=== PATIENT | female | born 1990 | race Caucasian/White ===

== ENCOUNTER → 2021-10-06 12:11 | Outpatient (CLI) | payer OTHER, SELFPAY ==
--- NOTE | 2021-10-06 12:14 | US_ITS ---
FINAL REPORT CLINICAL HISTORY: Check Placement of IUD and Strings FINDINGS: Transvaginal sonographic images of the pelvis were obtained. The uterus measures 7.5 x 5.2 x 3.6 cm. The endometrium measures 4 mm, which is within normal limits. An IUD is present within the endometrial cavity. The right ovary measures 3.0 cm in length and left ovary measures 4.4 cm in length. Normal blood flow seen to the ovaries. Multiple small follicles are seen in the periphery of both ovaries with an appearance worrisome for PCOS. In addition, there is a 2.1 cm left ovarian cyst. There is no evidence of free fluid. IMPRESSION: IUD is present within the endometrial cavity. Multiple small follicles in the periphery of both ovaries with an appearance worrisome for PCOS. Reviewed, Interpreted and Dictated by Haris Banks III, MD Transcribed by Radha Mccarthy Authenticated and [facility]
== END ==
PROVIDERS: Visit Provider Obstetrics & Gynecology
DX: Z01.818 Encounter for other preprocedural examination (principal); Z20.822 Contact with and (suspected) exposure to COVID-19; Z30.430 Encounter for insertion of intrauterine contraceptive device
CPT/HCPCS: 76830; C9803; U0003; U0005

== ENCOUNTER 2021-10-07 06:07 | Day surgery (SDC) | payer OTHER, SELFPAY ==
[2021-10-07 06:14] VITALS: BMI 24.4
[2021-10-07 06:32] VITALS: BP 104/57; PULSE 65; RESP 18; TEMP 36.4; O2SAT 97
[2021-10-07 06:37] LABS: Urine Pregnancy, HCG Qual. Negative (Negative)
[2021-10-07 07:53] VITALS: BP 100/53; PULSE 81; RESP 18; TEMP 36.5; O2SAT 97
--- NOTE | 2021-10-07 08:07 | EXP.OP.NOTE ---
Date of procedure: 10/07/21 Pre-op Diagnosis:: 1. Encounter for IUD removal. IUD strings not identified on exam Post-op Diagnosis:: 1. Encounter for IUD removal. IUD strings not idenitifed on exam Procedure performed:: Dilation, hysteroscopy, removal of IUD Surgeon:: Yanely Alfaro DO Flight Operations Dispatch Clerk(s):: n/a [employer]ATHER [employer] SALES REPRESENTATIVE:: Other (Terry Aguilar [employer]ATHER [employer] SALES REPRESENTATIVE) Anesthesia: MAC Estimated blood loss (mL): 0 Clinical Note:: Mrs Gifty Harvey is a very pleasant 31 yo, P2002, who present to the office on 10/06/21 for IUD removal. She would like to conceive. Attempted IUD removal without success. IUD strings not visualized during exam. Cervix was cleansed with Betadine. Attempted to grasp the strings in the cervical canal with Cytobrush and Alligator forceps. Attempt was unsuccessful. Patient tolerated attempt well. Pelvic ultrasound demonstrated IUD within the uterine cavity. Prophylactic Doxycycline was prescribed to prevent endometritis. Decision was made to proceed to OR for hysteroscopy and removal of IUD. Operative findings:: On bimanual exam, uterus was anteverted and of normal size and shape. No adnexal masses palpated. Cervix appeared grossly normal. On hysteroscopic exam, IUD was properly seated in the uterine cavity with the IUD strings wrapped around the stalk of the IUD. After IUD removed endometrial cavity was viewed. Tubal ostia easily visualized. Grossly normal appearing endometrial tissue. No masses or polyps. Operative note:: Risks, benefits and alternatives were discussed with the patient. Patient voiced understanding and agreed to proceed. She was wheeled back to the operating room and placed under MAC without difficulty. She was placed in dorsal lithotomy position and prepped and draped in the normal sterile fashion. A bimanual exam was performed. A weighted Auvard was placed in the vaginal vault. Single tooth tenaculum was placed on anterior lip of the cervix. Uterus sounded to 8. Sequential Martin dilators were used to dilate the cervical os. Hysteroscope was tested inserted through the cervix without difficulty. Endometrial cavity was evaluated. See findings above. Pictures were taken. Hysteroscopic graspers were inserted through the hysteroscope. IUD was grasped and removed without difficulty with removal of hysteroscope. IUD was intact. Hysteroscope was inserted and endometrial cavity was evaluated. See findings above. Hysteroscope was removed. Instruments were removed from the vagina. Small amount of oozing at left tenaculum site. Silver nitrate stick applied to tenaculum site. Tenaculum site was noted to be hemostatic. Patient was awaken from anesthesia without difficulty. She was transported to recovery room in stable condition. Patient will be discharged home when awake and ambulating. She was given postop instructions. Continue Doxycycline 100 mg BID that was prescribed on 10/06/21. Condition: stable Disposition: same day Specimens:: None Complications:: None
[2021-10-07 08:08] VITALS: BP 103/77; PULSE 75; RESP 18; TEMP 36.5; O2SAT 100
[2021-10-07 08:26] VITALS: BP 100/63; PULSE 60; RESP 18; TEMP 36.5; O2SAT 100
--- NOTE | 2021-10-07 09:19 | PC.NURSE ---
0755- TSever RELIABILITY TECHNOLOGIST administered 30 Tordal IV for the abd cramping
== END 2021-10-07 08:26 | disposition home or self-care (01) ==
PROVIDERS: PCP Obstetrics & Gynecology; Visit Provider Obstetrics & Gynecology
PROC: (CPT 58562; principal; 2021-10-07 07:30)
DX: Z30.432 Encounter for removal of intrauterine contraceptive device (principal); T83.32XA Displacement of intrauterine contraceptive device, initial encounter; Z79.899 Other long term (current) drug therapy
CPT/HCPCS: 58562; 81025

== ENCOUNTER → 2021-12-27 09:19 | Outpatient (CLI) | payer OTHER, SELFPAY ==
[2021-12-27 10:58] LABS: HCG,Quantitative 749 mIU/ml (0-5.42)
[2021-12-28 08:15] LABS: Progesterone 27.8 ng/mL (.)
== END ==
PROVIDERS: PCP Internal Medicine Adolescent Medicine; Visit Provider Obstetrics & Gynecology
DX: Z34.90 Encounter for supervision of normal pregnancy, unspecified, unspecified trimester (principal)
CPT/HCPCS: 36415; 84144; 84702

== ENCOUNTER → 2022-01-25 17:02 | Outpatient (CLI) | payer OTHER, SELFPAY ==
[2022-01-25 19:12] LABS: Amphetamine/Metha Screen,Urine Negative ng/ml (<1000)
[2022-01-25 19:13] LABS: Barbiturates Screen,Urine Negative ng/ml (<200); Benzodiazepines Screen,Urine Negative ng/ml (<200)
[2022-01-25 19:14] LABS: Cannabinoid Screen,Urine Negative ng/ml (<50)
[2022-01-25 19:15] LABS: Cocaine Screen,Urine Negative ng/ml (<300); Methadone Screen,Urine Negative ng/ml (<300)
[2022-01-25 19:16] LABS: Opiate Screen,Urine Negative ng/ml (<300); Phencyclidine Screen,Urine Negative ng/ml (<25)
[2022-01-31 23:37] LABS: Neisseria gonorrhoeae, NAA Negative (Negative)
== END ==
PROVIDERS: Visit Provider Obstetrics & Gynecology
DX: Z34.90 Encounter for supervision of normal pregnancy, unspecified, unspecified trimester (principal)
CPT/HCPCS: 80305; 87086; 87491; 87591

== ENCOUNTER → 2022-02-07 07:19 | Outpatient (CLI) | payer OTHER, SELFPAY ==
[2022-02-07 07:43] LABS: Basophils # 0.1 K/mm3 (0-0.2); Basophils % 0.8 % (0.1-2.0); Eosinophils # 0.2 K/mm3 (0.0-0.4); Eosinophils % 2.1 % (0.1-12.0); Hemoglobin 12.5 g/dL (12.2-16.2); Lymphocytes # 1.9 K/mm3 (0.7-4.5); Lymphocytes % 24.8 % (10-50); Mean Corpuscular HGB Conc 33.9 g/dL (31.8-35.4); Mean Corpuscular Hemoglobin 32.5 pg (27.0-31.2); Monocytes # 0.3 K/mm3 (0.1-1.0); Monocytes % 4.5 % (1.7-9.3); Neutrophils # 5.1 K/mm3 (1.8-7.8); Neutrophils % 67.8 % (37.0-80.0); Platelet Count 228 K/mm3 (142-424); Red Blood Count 3.85 M/mm3 (4.20-5.40); White Blood Count 7.5 K/mm3 (4.8-10.8)
[2022-02-08 09:13] LABS: HIV Screen 4th Generation wRfx Non Reactive (Non Reactive)
[2022-02-08 13:33] LABS: Rapid Plasma Reagin Ab Titer Non Reactive (NonRea<1:1)
[2022-02-15 23:00] LABS: Hepatitis B Surface Antigen NEGATIVE; Hepatitis C Antibody <0.1
== END ==
PROVIDERS: PCP Internal Medicine Adolescent Medicine; Visit Provider Obstetrics & Gynecology
DX: Z34.90 Encounter for supervision of normal pregnancy, unspecified, unspecified trimester (principal)
CPT/HCPCS: 36415; 85025; 86593; 86703; 86762; 86850; 87340; 87380; G0432

== ENCOUNTER → 2022-04-26 13:54 | Outpatient (CLI) | payer OTHER, SELFPAY ==
--- NOTE | 2022-04-26 13:54 | US_ITS ---
FINAL REPORT CLINICAL HISTORY: 20 week anatomy scan FINDINGS: There is a single live intrauterine gestation. Presentation is breech. The cervix is closed and measures 3.3 cm. Placenta is anterior, fundal and posterior. Cardiac activity is confirmed at 139 bpm. No gross anomalies identified. MEASUREMENTS: ULTRASOUND AGE: 21 weeks 3 days. GESTATION AGE: 21 weeks 0 days. ESTIMATED WEIGHT: 434 g GROWTH PERCENTILE: 75% BPD: 5.13 cm corresponding to 21 weeks 4 days. OFD: 6.54 cm corresponding to 21 weeks 5 days. HC: 18.46 cm corresponding to 20 weeks 6 days. AC: 16.85 cm corresponding to 21 weeks 6 days. FL: 3.60 cm corresponding to 21 weeks 3 days. CEREBELLUM: 2.10 cm corresponding to 21 weeks 2 days. HUMERUS: 3.48 cm corresponding to 22 weeks 0 days. HC/AC: 1.10 CI: 78% FL/BPD: 70% FL/AC: 21% IMPRESSION: Single living IUP with an ultrasound age of 21 weeks 3 days. Reviewed, Interpreted and Dictated by Carlos Oconnell MD Transcribed by Cindy Armendariz Authenticated and [facility]
== END ==
PROVIDERS: PCP Internal Medicine Adolescent Medicine; Visit Provider Obstetrics & Gynecology
DX: Z34.90 Encounter for supervision of normal pregnancy, unspecified, unspecified trimester (principal); Z3A.20 20 weeks gestation of pregnancy
CPT/HCPCS: 76811

== ENCOUNTER → 2022-05-25 07:23 | Outpatient (CLI) | payer OTHER, SELFPAY ==
[2022-05-25 07:40] LABS: Basophils # 0.1 K/mm3 (0-0.2); Basophils % 0.6 % (0.1-2.0); Eosinophils # 0.2 K/mm3 (0.0-0.4); Hematocrit 33.5 % (37.0-47.0); Hemoglobin 11.4 g/dL (12.2-16.2); Lymphocytes # 1.9 K/mm3 (0.7-4.5); Lymphocytes % 22.5 % (10-50); Mean Corpuscular HGB Conc 33.9 g/dL (31.8-35.4); Mean Corpuscular Hemoglobin 31.9 pg (27.0-31.2); Mean Corpuscular Volume 94.1 fl (81-99); Monocytes # 0.5 K/mm3 (0.1-1.0); Monocytes % 5.8 % (1.7-9.3); Neutrophils # 5.9 K/mm3 (1.8-7.8); Neutrophils % 69.1 % (37.0-80.0); Platelet Count 223 K/mm3 (142-424); Red Blood Count 3.56 M/mm3 (4.20-5.40); White Blood Count 8.6 K/mm3 (4.8-10.8)
[2022-05-25 07:54] LABS: Glucose,Fasting 85 mg/dl (74-100)
[2022-05-25 09:27] LABS: Glucose 1 Hour 89 mg/dL (74-100)
== END ==
PROVIDERS: PCP Internal Medicine Adolescent Medicine; Visit Provider Obstetrics & Gynecology
DX: Z34.90 Encounter for supervision of normal pregnancy, unspecified, unspecified trimester (principal); Z3A.20 20 weeks gestation of pregnancy
CPT/HCPCS: 36415; 82951; 85025

== ENCOUNTER 2022-08-30 05:34 | Inpatient (IN) | payer OTHER, SELFPAY ==
[2022-08-30] VITALS (8 sets, daily range): BP systolic 101–127; BP diastolic 47–74; PULSE 78–91; RESP 15–20; TEMP 36.6–37.1; O2SAT 97–100; BMI 29.4
[2022-08-30 06:10] LABS: Microscopic, Urine URINE MICROSCOPIC (MICROSCOPIC)
[2022-08-30 06:16] LABS: Basophils % 0.5 % (0.1-2.0); Eosinophils # 0.1 K/mm3 (0.0-0.4); Eosinophils % 0.9 % (0.1-12.0); Hematocrit 31.6 % (37.0-47.0); Hemoglobin 10.2 g/dL (12.2-16.2); Lymphocytes # 1.7 K/mm3 (0.7-4.5); Lymphocytes % 28.3 % (10-50); Mean Corpuscular HGB Conc 32.3 g/dL (31.8-35.4); Mean Corpuscular Hemoglobin 26.5 pg (27.0-31.2); Mean Platelet Volume 10.1 fl (7.4-10.4); Monocytes # 0.4 K/mm3 (0.1-1.0); Monocytes % 6.5 % (1.7-9.3); Neutrophils # 3.9 K/mm3 (1.8-7.8); Neutrophils % 63.9 % (37.0-80.0); Platelet Count 171 K/mm3 (142-424); Red Blood Count 3.86 M/mm3 (4.20-5.40); White Blood Count 6.1 K/mm3 (4.8-10.8)
[2022-08-30 06:26] LABS: Appearance,Urine CLEAR (Clear); Bilirubin,Urine Negative (Negative); Blood, Urine TRACE-I (Negative); Color,Urine YELLOW (Yellow); Glucose,Urine (UA) Negative (Negative); Ketones,Urine Negative (Negative); Leukocyte Esterase,Urine Negative (Negative); Nitrate,Urine Negative (Negative); PH,Urine 6.5 (5.0-8.5); Protein,Urine Negative (Negative); Specific Gravity, Urine 1.015 (1.005-1.030); Urobilinogen,Urine 0.2 EU/dl (0.2)
[2022-08-30 06:31] LABS: Alanine Aminotransferase 19 U/L (12-78); Albumin Level 3.4 g/dl (3.5-5.0); Albumin/Globulin Ratio 1.4 (1.1-1.8); Alkaline Phosphatase 248 U/L (38-126); Anion Gap 6.5 mEq/L (5-15); Aspartate Amino Transferase 28 U/L (14-36); Bilirubin,Total 0.3 mg/dl (0.2-1.3); Blood Urea Nitrogen 4 mg/dl (7-17); Calcium 8.3 mg/dl (8.4-10.2); Carbon Dioxide 22 mmol/L (22.0-30.0); Chloride 110 mmol/L (98-107); Creatinine Clearance Estimated 240 mL/min (50-200); Estimated Glomerular Filt Rate 185 ml/min (>60); GFR (African American) 224 ML/MIN (>60); Globulin 2.5 g/dL (1.3-3.2); Glucose 84 mg/dl (74-100); Potassium 3.5 mmoL/L (3.5-5.1); Sodium 135 mmol/L (136-145); Total Protein,Serum 5.9 g/dl (6.3-8.2)
[2022-08-30 06:37] LABS: Bacteria,Urine Trace /lpf; Squamous Epithelial Cell,Urine Occasional #/hpf (0-5); WBC,Urine Occasional #/hpf (0-3)
--- NOTE | 2022-08-30 07:17 | EXP.OB.APHP ---
OB - H&P: HPI Antepartum History of Present Illness Chief complaint: Scheduled repeat History of present illness: Mrs Gifty Harvey is a 32 yo at 39w0d who presents for scheduled repeat . History of x 2. She has had good care. She is complete with child bearing and desires permanent sterilization. History of Present Criteria for establishing EDC:: LMP confirmed by 1st trimester US care: good care Ultrasounds: normal 1st trimester US and normal mid trimester US Obstetrical complications: none Medical complications: none Labs Blood type: O (+) positive Rubella: immune RPR/VDRL: nonreactive HBsAG: negative PFSH PFSH Disclaimer: The information contained in this section may have been updated after the patient was seen, as this information can be updated by other users. Medical History (Updated 08/30/22 @ 07:22 by Yanely Alfaro DO) Headache in Heartburn during in third trimester Nausea and vomiting in with 39 completed weeks gestation Surgical History History of History of hysteroscopy Family History Other Diabetes Hypertension Social History Smoking Status: Never smoker alcohol intake: never substance use type: denies use current occupational status: employed Travel in the last 8 weeks: None Review of Systems Review of Systems Review of systems:: pertinent systems reviewed and negative unless documented below Meds Home Medications and Allergies Home Medications Medication Instructions Recorded Confirmed Type docosahexaenoic acid 200 mg 200 mg PO DAILY Supplement 01/25/22 08/30/22 History capsule ( DHA) pantoprazole 20 mg tablet,delayed 20 mg PO DAILY Heartburn 08/30/22 08/30/22 History release New Prescriptions to Start Prescriptions: Allergies Allergy/AdvReac Type Severity Reaction Status Date / Time No Known Drug Allergies Allergy Unknown NA Verified 08/28/22 09:18 [NKDA] OB - H&P: Exam Physical Exam Vital signs: Temp Pulse Resp BP Pulse Ox O2 Del Method 98.8 F 91 H 16 127/61 98 Room Air 08/30/22 06:22 08/30/22 06:22 08/30/22 06:22 08/30/22 06:22 08/30/22 06:22 08/30/22 06:22 Constitutional no acute distress Routine HEENT Exam Head: Present normocephalic and atraumatic Eye: Absent conjunctivae pink ENT: Present mucous membranes moist and dentition normal Routine Neck Exam Present full ROM Routine Respiratory Exam Present CTA bilaterally and normal respiratory effort Routine Cardiovascular Exam Present RRR Routine Abdominal Exam Present soft (Gravid); Absent tenderness Routine Rectal Exam Patient deferred: visual exam Routine Exam External: Present normal urethra appearance; Absent erythema, tenderness or lesions Routine Extremities Exam Present edema (+1 bilateral lower extremity edema) and full ROM; Absent calf tenderness Routine Neurological Exam Present alert, oriented X3 and moving all extremities Routine Psychiatric Exam Present normal affect and cooperative Detailed Labor and Delivery Exam Membranes: intact Baseline heart rate: 150 monitor accelerations: Present monitor decelerations: Variable USP variability: Moderate (11-25) OB - Results Labs Labs: Short CBC 08/30/22 Range/Units 06:03 WBC 6.1 (4.8-10.8) K/mm3 Hgb 10.2 L (12.2-16.2) g/dL Hct 31.6 L (37.0-47.0) % Plt Count 171 (142-424) K/mm3 BMP 08/30/22 06:03 Sodium 135 L Potassium 3.5 Chloride 110 H Carbon Dioxide 22 BUN 4 L Creatinine 0.40 L Glucose 84 Calcium 8.3 L Liver Function 08/30/22 Range/Units 06:03 Total Bilirubin 0.3 (0.2-1.3) mg/dl AST 28 (14-36) U/L ALT 19 (12-78)
[2022-08-30 07:52] LABS: Cord Blood PH 7.43 (7.35-7.45)
[2022-08-30 08:07] LABS: Amphetamine/Metha Screen,Urine Negative ng/ml (<1000); Barbiturates Screen,Urine Negative ng/ml (<200)
[2022-08-30 08:08] LABS: Benzodiazepines Screen,Urine Negative ng/ml (<200)
[2022-08-30 08:09] LABS: Cannabinoid Screen,Urine Negative ng/ml (<50)
[2022-08-30 08:10] LABS: Cocaine Screen,Urine Negative ng/ml (<300); Methadone Screen,Urine Negative ng/ml (<300)
[2022-08-30 08:14] LABS: Opiate Screen,Urine Negative ng/ml (<300)
[2022-08-30 08:15] LABS: Phencyclidine Screen,Urine Negative ng/ml (<25)
--- NOTE | 2022-08-30 08:34 | EXP.OP.NOTE ---
Date of procedure: 08/30/22 Pre-op Diagnosis:: 1. IUP at 39w0d 2. History of x 2 3. Complete with childbearing, desires permanent sterilization Post-op Diagnosis:: 1. IUP at 39w0d 2. History of x 2 3. Complete with childbearing, desires permanent sterilization Procedure performed:: 1. Repeat Low Transverse Section 2. Bilateral partial salpingectomy Surgeon:: Yanely Alfaro DO Field Education Coordinator(s):: iMn Cash MD MATHEMATICS TEACHER:: Ronny Oconnell Anesthesia: spinal Estimated blood loss (mL): 300 Clinical Note:: Mrs Gifty Harvey is a 32 yo at 39w0d who presents for scheduled repeat . History of x 2. She has had good care. She is complete with child bearing and desires permanent sterilization. Operative findings:: 1. Live male baby (baby's name is Senthil) weighing 7 lb 14 oz, APGARs 8, 9 2. Nuchal cord x 2, easily reduced 2. Grossly normal appearing uterus, bilateral fallopian tubes and ovaries Operative note:: The risks, benefits and alternatives of the procedure were reviewed with the patient. Informed consent was obtained. Patient was taken to the operating room where spinal anesthesia was placed. The patient received 2 grams of Ancef preoperatively. Patient was placed in dorsal supine position with a leftward tilt. SCDs in place. Shaw catheter had been placed and was draining clear urine prior to the start of the procedure. Patient was then prepped and draped in normal sterile fashion. Allis clamp test was performed to ensure adequate anesthesia. A skin incision was made 2 cm above pubic symphysis at prior Pfannenstiel scar. This was carried through to underlying layer of fascia. Fascia was incised in midline, extended laterally with Aguilera scissors. Superior aspect of fascial incision was grasped with two Eladia clamps, elevated up, and rectus muscle dissected off bluntly and sharply with Aguilera scissors. Inferior aspect of fascial incision was grasped with two Eladia clamps, elevated up, and rectus muscle dissected off bluntly and sharply with Aguilera scissors.The retcus muscle was then in the midline and the peritoneum was entered bluntly with a digit. Peritoneal incision was then extended superiorly and inferiorly with good visualization of the bladder. Jose Antonio retractor was inserted. Bladder flap was made with Metzenbaum scissors. The lower uterine segment was incised in a transverse fashion. Clear amniotic fluid was noted. Head was delivered without difficulty. Nuchal x 2 was easily reduced. Remainder of body was delivered without difficulty. Mouth and nares were bulb suctioned. Spontaneous cry was noted. Delayed cord clamping was performed for 60 seconds. The umbilical cord was clamped and cut. The infant was handed to awaiting pediatric staff in stable condition. Dr. Naik was present. Apgars were 8(1 min), 9(5 min). Cord blood was obtained. Gentle traction on the umbilical cord and uterine fundal massage delivered the placenta. Placenta was intact. Placenta will be sent to pathology for review. Uterus was cleared of all clots and debris with a moist laparotomy sponge. Corners of the uterine incision were grasped with Allis clamps. The uterine incision was reapproximated with # 1 Vicryl suture in a running, locked stitch. Second layer of the same stitch was used to imbricate the incision. Hemostasis was noted. Vesicouterine peritoneum was reapproximated with 0 Chromic suture in a running stitch. Hemostasis was noted. Posterior cul-de-sac was cleaned with moist laparotomy sponge.Gutters cleared of all clots and debris with a moist laparotomy sponge. Attention was then turned to the left fallopian tube, which was grasped with a Laurier clamp and avascular space below the tub was entered using a hemostat. The tube was doubly clamped using hemostat and the portion between the clamps was removed using Metzenbaum scissors. The proximal and distal ends of the tube were doubly suture ligated with 0 Chr
--- NOTE | 2022-08-30 08:43 | EXP.ANES.CKL ---
[facility] Disclaimer: The information contained in this section may have been updated after the patient was seen, as this information can be updated by other users. Medical History (Updated 08/30/22 @ 07:22 by Yanely Alfaro DO) Headache in Heartburn during in third trimester Nausea and vomiting in with 39 completed weeks gestation Surgical History History of History of hysteroscopy Family History Other Diabetes Hypertension Social History Smoking Status: Never smoker alcohol intake: never substance use type: denies use current occupational status: employed Travel in the last 8 weeks: None [facility] Anesthesia Checklist Patient Identification Patient Identification: Arm Band Structural Data Admitted From: Inpatient Planned Operative Procedure/s: Repeat C/S, BTL Consent for Planned Operative Procedure(s) Verified: Yes Verified Documents: Surgical Consent and History and Physical NPO Status Verified Time NPO: 00:00 Additional verifications Anesthesia Reactions: No Hx Blood Transfusions: No Blood Transfusion Reaction: No Airway Assessment C-Spine Mobility Assessed: Yes TMJ Mobility Assessed: Yes Dentition: Good Dentition Neurological Assessment Level of Consciousness: Awake and Alert Anesthesia Plan Anesthesia Risk discussed: Yes Anesthesia Plan: Verified ASA Class: II Anesthesia Type: Spinal (with Bilateral TAP Block)
--- NOTE | 2022-08-30 08:45 | EXP.ANES.I ---
[facility] Anesthesia Record Part I Anesthesia Record I Intake, IV Amount: 2,000 Estimated blood loss (mL): 300 Urine output (mL): 600 Blood Products used (#): none Blood Pressure: 101/47 SaO2: 100 Pulse Rate: 80 Respiratory Rate: 16 Temperature: 97.9 F Patient is:: Awake and Stable Stable to PACU at:: 08:40
--- NOTE | 2022-08-30 12:53 | EXP.ANES.II ---
[facility] Anesthesia Record Part II Anesthesia Record Part II Discharge Time: 09:10 Destination: Obstetric PACU nurse assessment reviewed?: Yes Patient Condition:: Good Anesthesia Complications:: None Swallowing reflex intact?: Yes Cyanosis?: No Blood Pressure: 124/74 Pulse Rate: 85 Temperature: 97.9 F Mental Status: Alert & Oriented Pain level:: 0 Nausea and/or vomitting:: None Intake, IV Amount: 0
[2022-08-30 14:09] LABS: Microscopic,Cath URINE MICROSCOPIC (MICROSCOPIC)
--- NOTE | 2022-08-30 14:18 | SUR.OPER ---
Time of 0746, viable male . ph 7.42.
[2022-08-30 14:56] LABS: Appearance,Urine/Cath CLEAR (Clear); Bilirubin,Cath Negative (Negative); Blood, Urine/Cath Negative (Negative); Color,Urine/Cath STRAW (Yellow); Glucose,Urine/Cath (UA) Negative (Negative); Ketones,Urine/Cath Negative (Negative); Leukocyte Esterase,Cath Negative (Negative); Nitrate,Cath Negative (Negative); Protein,Urine/Cath Negative (Negative); Specific Gravity, Urine/Cath <= 1.005 (1.005-1.030); Urobilinogen,Cath 0.2 EU/dl (0.2)
[2022-08-30 15:11] LABS: Squamous Epithelial Ur./Cath Occasional #/hpf (0-5)
[2022-08-31 06:54] LABS: Basophils % 0.4 % (0.1-2.0); Eosinophils # 0.1 K/mm3 (0.0-0.4); Eosinophils % 1.3 % (0.1-12.0); Hematocrit 30.5 % (37.0-47.0); Hemoglobin 9.5 g/dL (12.2-16.2); Lymphocytes # 1.4 K/mm3 (0.7-4.5); Lymphocytes % 15.3 % (10-50); Mean Corpuscular HGB Conc 31.1 g/dL (31.8-35.4); Mean Corpuscular Volume 83.8 fl (81-99); Mean Platelet Volume 9.8 fl (7.4-10.4); Monocytes # 0.5 K/mm3 (0.1-1.0); Monocytes % 5.3 % (1.7-9.3); Neutrophils # 7.3 K/mm3 (1.8-7.8); Neutrophils % 77.7 % (37.0-80.0); Platelet Count 203 K/mm3 (142-424); Red Blood Count 3.63 M/mm3 (4.20-5.40); Red Cell Distribution Width 15.3 % (11.5-17.5); White Blood Count 9.4 K/mm3 (4.8-10.8)
--- NOTE | 2022-08-31 12:41 | EXP.DC.SUM ---
General Admission date:: 08/30/22 Discharge date: 08/31/22 HPI HPI HPI: POD # 1 s/p RLTCS with BPS Resting comfortably sitting in bed. Pain controlled. Lochia is appropriate. Breast feeding. Voiding without difficulty and passing flatus. Tolerating regular diet. Denies fever/chills, chest pain and shortness of breath. No headache or vision changes. Ambulating well ad debora. Hospital Course Hospital Course Hospital Course: Mrs Gifty Harvey is a 32 yo at 39w0d who presented to [facility] L[facility]D for scheduled repeat . History of x 2. She has had good care. She is complete with child bearing and desires permanent sterilization. She underwent repeat with BPS on 08/30/22. She delived a live male baby, Senthil, weighing 7 lb 14 oz. APGARs 8, 9. EBL 300 mL. She did well postoperatively. Pain controlled. Breast feeding. Tolerating regular diet. Voiding without difficulty and passing flatus. Heart was regular rate and rhythm. Lungs clear to auscultation. Abdomen soft, nontender. No lower extremity edema. Ambulating well ad debora. Vital signs stable, afebrile. She was discharged home on POD # 1. Exam Data for Last 24 hours Vital signs and Labs for Last 24 Hours: Temp Pulse Resp BP Pulse Ox O2 Del Method 98.2 F 81 20 118/59 L 98 Room Air 08/30/22 16:00 08/30/22 16:00 08/30/22 16:00 08/30/22 16:00 08/30/22 16:00 08/30/22 16:00 Laboratory Results - last 24 hr 08/30/22 05:50: Urine Color Yellow, Urine Appearance Clear, Urine pH 6.5, Ur Specific [place] 1.015, Urine Protein Negative, Urine Glucose (UA) Negative, Urine Ketones Negative, Urine Blood Trace-i, Urine Nitrate Negative, Urine Bilirubin Negative, Urine Urobilinogen 0.2, Ur Leukocyte Esterase Negative, Urine RBC None, Urine WBC Occasional, Ur Squamous Epith Cells Occasional, Urine Bacteria Trace, Urine Opiates Screen Negative, Urine Methadone Screen Negative, Ur Barbituates Screen Negative, Ur Phencyclidine Scrn Negative, Ur Amphetamines Screen Negative, U Benzodiazepines Scrn Negative, Urine Cocaine Screen Negative, U Marijuana (THC) Screen Negative 08/30/22 07:25: Urine Color Straw, Urine Appearance Clear, Urine pH 7.0, Ur Specific [place] <= 1.005, Urine Protein Negative, Urine Glucose (UA) Negative, Urine Ketones Negative, Urine Blood Negative, Urine Nitrate Negative, Urine Bilirubin Negative, Urine Urobilinogen 0.2, Ur Leukocyte Esterase Negative, Urine RBC None, Urine WBC None, Ur Squamous Epith Cells Occasional, Urine Bacteria None 08/31/22 06:32: WBC 9.4 D, RBC 3.63 L, Hgb 9.5 L, Hct 30.5 L, MCV 83.8, MCH 26.0 L, MCHC 31.1 L, RDW 15.3, Plt Count 203, MPV 9.8, Neut % (Auto) 77.7, Lymph % (Auto) 15.3, [place] % (Auto) 5.3, Eos % (Auto) 1.3, Baso % (Auto) 0.4, Neut # (Auto) 7.3, Lymph # (Auto) 1.4, [place] # (Auto) 0.5, Eos # (Auto) 0.1, Baso # (Auto) 0.0 I & O for Last 24 hours: Intake & Output 08/28/22 08/29/22 08/30/22 08/31/22 23:59 23:59 23:59 23:59 Intake Total 2150 / 2150 Output Total 1000 / 1000 Balance 1150 / 1150 Weight 165 lb 15.988 oz Constitutional Constitutional: no acute distress *Routine HEENT Exam Head: Present normocephalic and atraumatic Eye: Absent conjunctivae pink ENT: Present mucous membranes moist and dentition normal *Routine Neck Exam Neck: Present full ROM *Routine Respiratory Exam Respiratory: Present CTA bilaterally and normal respiratory effort *Routine Cardiovascular Exam Cardiovascular: Present RRR *Routine Abdominal Exam Abdominal: Present soft and normoactive bowel sounds; Absent tenderness or distended Comments: Uterine fundus firm and below umbilicus, pfannenstiel incision clean/dry/intact with steri strips in place *Routine Rectal Exam Patient deferred: visual exam *Routine Exam Patient deferred: external exam *Routine Extremities Exam Extremities: Present full ROM; Absent edema or calf tenderness *Routine Neurological Exam Neurological: Present alert, oriented X3 and mov
== END 2022-08-31 13:28 | disposition home or self-care (01) | DRG 785 ==
PROVIDERS: Admitting Provider Obstetrics & Gynecology; PCP Internal Medicine Adolescent Medicine; Visit Provider Obstetrics & Gynecology
PROC: 10D00Z1 Extraction of Products of Conception, Low, Open Approach (ICD-10-PCS; principal; 2022-08-30 07:30)
DX: O34.211 Maternal care for low transverse scar from previous cesarean delivery (principal); N85.8 Other specified noninflammatory disorders of uterus; Z3A.39 39 weeks gestation of pregnancy; Z37.0 Single live birth; O69.81X0 Labor and delivery complicated by cord around neck, without compression, not applicable or unspecified; D64.9 Anemia, unspecified; O99.02 Anemia complicating childbirth; Z30.2 Encounter for sterilization
CPT/HCPCS: 59514; 58700; 36415; 59025; 80053; 80305; 81001; 82800; 85025; 86850; 94761; C9290; G0283; J2405

== ENCOUNTER 2024-01-21 13:00 | Outpatient (CLI) | payer OTHER, SELFPAY ==
[2024-01-21 13:27] LABS: Basophils # 0.1 K/mm3 (0-0.2); Basophils % 1.1 % (0.1-2.0); Eosinophils # 0.2 K/mm3 (0.0-0.4); Eosinophils % 2.7 % (0.1-12.0); Hematocrit 38.9 % (37.0-47.0); Hemoglobin 13.5 g/dL (12.2-16.2); Lymphocytes % 35.3 % (10-50); Mean Corpuscular HGB Conc 34.8 g/dL (31.8-35.4); Mean Corpuscular Hemoglobin 31.8 pg (27.0-31.2); Mean Corpuscular Volume 91.5 fl (81-99); Mean Platelet Volume 8.9 fl (7.4-10.4); Monocytes # 0.3 K/mm3 (0.1-1.0); Monocytes % 5.6 % (1.7-9.3); Neutrophils # 3.2 K/mm3 (1.8-7.8); Neutrophils % 55.4 % (37.0-80.0); Platelet Count 230 K/mm3 (142-424); Red Blood Count 4.25 M/mm3 (4.20-5.40); Red Cell Distribution Width 13.7 % (11.5-17.5); White Blood Count 5.8 K/mm3 (4.8-10.8)
[2024-01-21 13:57] LABS: Albumin Level 4.3 g/dl (3.5-5.0); Chloride 104 mmol/L (98-107); Sodium 134 mmol/L (136-145)
[2024-01-21 13:58] LABS: Potassium 3.9 mmoL/L (3.5-5.1)
[2024-01-21 14:00] LABS: Alanine Aminotransferase 30 U/L (12-78); Alkaline Phosphatase 74 U/L (38-126); Anion Gap 5.9 mEq/L (5-15); Aspartate Amino Transferase 33 U/L (14-36); Bilirubin,Total 0.7 mg/dl (0.2-1.3); Blood Urea Nitrogen 9 mg/dl (7-17); Calcium 9.2 mg/dl (8.4-10.2); Carbon Dioxide 28 mmol/L (22.0-30.0); Estimated Glomerular Filt Rate 96 ml/min (>60); GFR (African American) 117 ML/MIN (>60); Globulin 2.1 g/dL (1.3-3.2); Glucose 84 mg/dl (74-100); Total Protein,Serum 6.4 g/dl (6.3-8.2)
[2024-01-21 14:29] LABS: Thyroid Stimulating Hormone 0.52 uIU/mL (0.465-4.68)
[2024-01-21 16:18] LABS: 25-OH Vitamin D, Total 35.7 ng/mL (30-100)
[2024-01-21 17:05] LABS: Vitamin B12 747 pg/mL (239-931)
== END 2024-01-21 23:59 | disposition home or self-care (01) ==
LOC: LAB 13:01
PROVIDERS: PCP Nurse Practitioner Family; Visit Provider Nurse Practitioner Family
DX: R51.9 Headache, unspecified (principal)
CPT/HCPCS: 36415; 80050; 80053; 82306; 82607; 82728; 82746; 83735; 84443; 85025

== ENCOUNTER 2024-01-24 07:19 | Outpatient (CLI) | payer OTHER, SELFPAY ==
--- NOTE | 2024-01-24 07:23 | MR_ITS ---
FINAL REPORT TECHNIQUE: Multiplanar MR, without and with gadolinium enhancement CLINICAL HISTORY: DAILY HEADACHE, VISUAL DISTURBANCE. AURA MIGRAINE HEADACHES COMPARISON: None FINDINGS: Diffusion sequences show no signal abnormality to indicate acute infarct. No mass, hemorrhage or edema is seen. Ventricles are normal. Major vascular flow voids are intact. Following contrast administration, no mass or abnormal enhancement is seen. IMPRESSION: Unremarkable MR evaluation the brain with contrast Reviewed, Interpreted and Dictated by Amanda Salazar MD Transcribed by Adela Melendrez Authenticated and [facility]
[2024-01-24] MEDS: SODIUM CHLORIDE 0.9% 10ML SYR (RAD ONLY) 10 ML IV (08:08)
[2024-01-24] MEDS: GADOTERIDOL INJ 20ML SYRINGE 13 ML IV (08:08)
== END 2024-01-24 23:59 | disposition home or self-care (01) ==
LOC: RAD 07:19
PROVIDERS: PCP Internal Medicine Adolescent Medicine; Visit Provider Nurse Practitioner Family
DX: R51.9 Headache, unspecified (principal); H53.9 Unspecified visual disturbance
CPT/HCPCS: 70553; A9576